=== PATIENT | male | born 1980 | race Caucasian/White ===

== ENCOUNTER 2016-06-08 09:50 | Observation (INO) | payer OTHER ==
[2016-06-08] VITALS (7 sets, daily range): BP systolic 114–149; BP diastolic 55–102; PULSE 79–91; RESP 16–20; O2SAT 94–97
[~2016-06-08] VITALS: Ht 167.6 cm; Wt 121.7 kg
[~2016-06-08 09:50] MED LIST: LEVO750T39 PO; LISI40TA PO; MELO-253 PO; METO25TA6 PO; OXYC1TAB24 PO
--- NOTE | 2016-06-08 10:20 | ED.REPORT ---
HPI-Chest Pain 40 and Over Date of Service Jun 08, 2016 ED Provider: Dr. Mcmahon Pt is a 36 y/o male w/ a hx of HTN, hyperlipidemia, pre-diabetes, presenting to the ED c/o constant CP onset 08:00 this morning. He was sitting at rest and developed sharp, tight pain of the upper left chest radiating to the left shoulder causing numbness of the left hand. He c/o associated SOB. Pt denies fever, chills, abdominal pain, increased pedal edema. Movement of his chest or arm does not increase pain. He was admitted August of last year for chest pain at which time a stress test was performed and was negative for ischemia but did show an EF of 36% on exertion. He does not take ASA regularly. He has no history of PE or any risk factors for PE. Nursing Notes Stated Complaint: SOB/CHEST PAIN Chief Complaint: Chest Pain Nursing Notes Reviewed: Yes Allergies: Coded Allergies: Sulfa (Sulfonamide Antibiotics) (Verified Allergy, Intermediate, Hives, ) azithromycin (Verified Allergy, Intermediate, allergy to erythromycin, ) erythromycin base (Verified Allergy, Intermediate, Hives, 06/08/16) Scheduled Budesonide/Formoterol 160-4.5 mcg Inh (Symbicort 160-4.5 mcg Inh) 120 Puff Inhaler 1 PUFF INH BID Lisinopril (Lisinopril) 40 Mg Tablet 40 MG PO DAILY Losartan Potassium (Losartan Potassium) 50 Mg Tablet 50 MG PO DAILY Metoprolol Tartrate (Metoprolol Tartrate) 25 Mg Tablet 25 MG PO BID Omeprazole (Omeprazole) 40 Mg Capsule.dr 40 MG PO DAILY Scheduled PRN Albuterol Sulfate (Ventolin HFA Inhaler) 200 Puff/18 Gm Inhaler 1-2 PUFFS INH Q4H PRN PRN For Shortness of Breath Fluticasone Propionate (Fluticasone Propionate Nasal) 16 Gm [place].susp 1 SPRAY NA DAILY PRN PRN For Congestion General Time Seen by MD: 10:20 Chief Complaint Chest pain Hx Obtained From: Patient Arrived By: Walk-in Sudden in Onset?: Yes Onset Occurred: 1 - 4 hours ago Context of Onset: At rest Symptom Duration: Since onset Location: : Chest left Quality: Painful, Sharp Radiation: : Arm left: Neck Severity: Current: Moderate Severity: Maximum: Moderate Recent Healthcare: Previous diagnosis Similar Sx Previous: Yes Past Medical History Past Medical History Achilles tear Scoliosis Hyperlipidemia - no meds because no RX Hypertension Pre-diabetes Past Surgical History Right shoulder Family History Grandfather myocardial infarction 40's Smoking History Never Smoker Social History Alcohol Use: "Social" Drug Use: Denies drug use Other Social History: Ambulatory Status Independent Review of Systems Constitutional: Denies: Chills, Fever Respiratory: Reports: Shortness of breath, Denies: Non-productive cough Cardiovascular: Reports: Chest pain, Denies: Edema GI: Denies: Abdominal pain, Diarrhea, Nausea, Vomiting Complete sys rev & neg: except as marked. Physical Exam Initial Vital Signs Vital Signs (First) Date Time Temp Pulse Resp B/P Pulse Ox O2 Delivery O2 Flow Rate FiO2 06/08/16 09:56 36.5 83 16 149/102 95 Room Air Initial VS: Reviewed, Vital signs normal Head / Eyes: Atraumatic, Normocephalic, PERRL ENT: Mucous membranes moist, Conjunctiva normal, No scleral icterus Neck: Supple, Full range of motion Extremities: Vascular intact, Neuro intact, No swelling, No tenderness Skin: Warm, Dry, No cyanosis Neurologic: Alert, Oriented, Nonfocal Psychiatric: Mood/affect normal, Behavior normal, Normal thought content General/Constitutional: Awake, Alert, No acute distress, Cooperative, Not toxic appearing Appearance / Presentation: Positive: Obese Respiratory / Chest: Atraumatic, Breath sounds NL, Breath sounds = bilat, No respiratory distress, No rales, No rhonchi, No wheezing, No retractions, No stridor, No chest tenderness, No chest wall deformity, No crepitus Cardiovascular: Heart rate NL, Regular rhythm, Heart sounds NL, No gallop, No murmurs, No rubs, Cap refill not delayed, Peripheral circulation NL Abdomen: Atraumatic, Soft, Non-tender, No guarding, No rebound, No distention, No palpable mass Interpretation & Diagnostics Lab Results Interpretation Result Diagram: 06/08/16 1046 06/08/16 1046 Test 06/08/16 10:46 White Blood Count 6.1th/mm3 (3.8-10.1) Red Blood Count 5.78mil/mm3 (4.40-5.80) Hemoglobin 16.3g/dL (13.8-17.2) Hematocrit 46.9% (41.0-50.0) Mean Corpuscular Volume 81.1fL (81-100) Mean Corpuscular Hemoglobin 28.2pg (27.0-35.0) Mean Corpuscular Hemoglobin Concent 34.8% (32.0-37.0) Red Cell Distribution Width 13.6% (12.3-15.4) Platelet Count 285bil/L (150-400) Neutrophils (%) (Auto) 45.3% (40-74) Lymphocytes (%) (Auto) 40.1% (14-46) Monocytes (%) (Auto) 11.2% (4-12) Eosinophils (%) (Auto) 1.7% (0-5) Basophils (%) (Auto) 1.0% (0-3) D-Dimer < 0.5mg/L (<0.50) Sodium Level 138mEq/L (134-144) Potassium Level 4.3mEq/L (3.5-5.2) Chloride Level 101mEq/L (97-108) Carbon Dioxide Level 25mmol/L (18-29) Blood Urea Nitrogen 16mg/dL (6-20) Creatinine 1.08mg/dL (0.76-1.27) Estimat Glomerular Filtration Rate 83mL/min (>59) Glucose Level 93mg/dL (60-99) Calcium Level 9.2mg/dL (8.5-10.1) Magnesium Level 2.3mg/dL (1.6-2.6) Total Bilirubin 0.5mg/dL (0.0-1.2) Aspartate Amino Transf (AST/SGOT) 34U/L (0-50) Alanine Aminotransferase (ALT/SGPT) 53U/L (0-44) Alkaline Phosphatase 59U/L (25-150) Total Creatine Kinase 342U/L (21-232) Creatine Kinase MB 3.5ng/mL (0.0-10.4) Creatine Kinase MB % % (0.0-5.0) Troponin T < 0.010ug/L (0.0-0.011) Total Protein 7.3g/dL (6.4-8.4) Albumin 4.4g/dL (3.4-5.0) Thyroid Stimulating Hormone (TSH) 0.946uIU/mL (0.450-4.500) ECG Interpretation ECG Interpretation: Sinus rhythm rate 89 Compared to prior 02/29/16 no longer tachycardic Time: 10:21 Interpreted by: ED physician Normal ECG Interpretation: Normal rate, Normal sinus rhythm, No acute ischemic changes, Normal QRS, Normal axis, Normal intervals, No change from prior ECGs, Adequate tracing X-Ray Chest Interpretation Chest Xray Interpretation: IMPRESSION: No acute cardiopulmonary disease process. Dictated by: Yasmeen Waller MD, PhD on 06/08/2016 at 10:45 Approved by: Yasmeen Waller MD, PhD on 06/08/2016 at 10:46 View: Portable, 1 view Interpretation / Wet Read by: Interpret - Radiologist Re-Eval/Medical Decision Med Decision/Clinical Course Pt is a 36 y/o male w/ a hx of HTN, hyperlipidemia, pre-diabetes, presenting to the ED c/o constant CP onset 08:00 this morning. He was sitting at rest and developed sharp, tight pain of the upper left chest radiating to the left shoulder causing numbness of the left hand. He c/o associated SOB. Pt denies fever, chills, abdominal pain, increased pedal edema. Movement of his chest or arm does not increase pain. He was admitted August of last year for chest pain at which time a stress test was performed and was negative for ischemia but did show an EF of 36% on exertion. He does not take ASA regularly. He has no history of PE or any risk factors for PE. Meds given: morphine, ASA, and nitro. He reported that his pain was only minimally improved. CXR: Obtained, reviewed and interpreted by myself shows no evidence of acute infiltrates, effusions or pneumothorax. Cardiac and mediastinal silhouette normal. No bony or soft tissue abnormalities. EKG was obtained and interpreted by myself as documented above. Labs notable as below: CBC: unremarkable CMP: unremarkable Troponin: negative At this time, the cause of the patient's chest pain remains unclear. I am reassured by his recent negative cardiac workup in terms of ischemic process however after reading his discharge summary I see no good explanation for why the patient has such a decreased ejection fraction at the age of 36. Moreover he has multiple cardiac risk factors including hypertension, hyperlipidemia, prediabetes and truncal obesity. I see no signs of the patient's presentation today is related to GERD or musculoskeletal etiology. Suspicion for pulmonary embolism is relatively low in this patient. On further discussion he does report strong family history of coronary artery disease. He discussions with the patient the joint decision was made to admit for further cardiac workup/ACS rule out. He was transferred in stable condition. Time of Eval: 12:43 Re-Evaluation/Progress Note: Pt rechecked. Informed pt of need for admission. Pt understands and agrees with plan for admission. All questions addressed. Consultation : Consulted With: Hospitalist Call Returned at: 14:37 Mems Process Engineer: Will see patient, Agrees with eval, Agrees with plan, Accepts admit Counseled Regarding: Diagnosis, Lab results, Need for admission Discharge & Departure Primary Impression: Chest pain Chest pain type: unspecified Qualified Code: R07.9 - Chest pain, unspecified Additional Impressions: Hyperlipidemia Hyperlipidemia type: unspecified Qualified Code: E78.5 - Hyperlipidemia, unspecified Hypertension Hypertension type: unspecified secondary hypertension Hypertension goal: unspecified goal Qualified Code: I15.9 - Secondary hypertension, unspecified Cardiac LV ejection fraction 21-40% Prediabetes Disposition: ADMITTED TO HOSPITAL Discharge Condition All VS Reviewed: Yes Condition: Stable Referrals: Marie Lacy (PCP) Pierreibrahul Attestation Portions of this note were transcribed by Nabor Calhoun. I, Dr. Mcmahon personally performed the history, physical exam and medical decision-making; I reviewed and confirmed the accuracy of the information in the transcribed note. Signed by Christy Griggs, 06/08/16 - 1200 copies to: Marie Lacy Beck O MD Jun 08, 2016 10:20 NABOR CALHOUN Jun 08, 2016 10:21
--- NOTE | 2016-06-08 10:48 | DRSVH ---
PROCEDURE: X-RAY CHEST ONE VIEW, PORTABLE ([id number]) INDICATIONS: PAIN TECHNIQUE: One view of the chest was acquired. COMPARISON: [facility], CR, XR CHEST 2VW, 05/29/2016, 14:41. [facility], CR , XR CHEST 1VW (PORTABLE), 02/29/2016, 16:50. FINDINGS: Surgical changes and devices: None. Lungs and pleura: No pleural effusions or pneumothorax. Lungs are clear. Mediastinum: Mediastinal contours appear normal. Heart size is normal. Bones and chest wall: Chronic skeletal deformity of the upper right chest wall stable compared to larisa or examinations. No suspicious bony lesions. Overlying soft tissues appear unremarkable. IMPRESSION: No acute cardiopulmonary disease process. Dictated by: Yasmeen Waller MD, PhD on 06/08/2016 at 10:45 Approved by: Yasmeen Waller MD, PhD on 06/08/2016 at 10:46
[2016-06-08 11:04] LABS: EOSINOPHILS % (AUTO) 1.7 % (0-5); MONOCYTES % (AUTO) 11.2 % (4-12); Mean Corpuscular Hemoglobin 28.2 pg (27.0-35.0); Mean Corpuscular Volume 81.1 fL (81-100); NEUTROPHILS % (AUTO) 45.3 % (40-74); Platelet Count 285 bil/L (150-400)
[2016-06-08 11:43] LABS: Magnesium 2.3 mg/dL (1.6-2.6)
[2016-06-08 11:48] LABS: TROPONIN T < 0.010 ug/L (0.0-0.011)
[2016-06-08] MEDS ORDERED: ALBU18HF INH (13:41)
[2016-06-08] MEDS ORDERED: OMEP40CA36 PO (13:43)
[2016-06-08] MEDS ORDERED: FLUT16SP (13:43)
[2016-06-08] MEDS ORDERED: LOSA50TA37 PO (13:43)
[2016-06-08] MEDS ORDERED: SYMINH INH (13:43)
--- NOTE | 2016-06-08 14:04 | NUR ---
Admit nurse note Admission assessment completed in ER. Pt. states his pain has not improved with 1st dose of morphine or nitroglycerin. Second dose of nitroglycerin given per orders. Pt. 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 c/o 09/25 sharp, throbbing cp with tingling down his left arm. He reports a large amount of stress lately. Apparently he has had multiple bouts of bronchitis and pneumonia, a chronic cough and recent dx of sleep apnea, in process of getting CPAP. He was admitted to [facility] for undiagnosed blackouts "they think it might be my spine." Also, hx EF 36% of unknown cause. Medicines entered per pt. report and erx but pt. was recently dx 4 medications to improve his cough, which he has not yet started. Allergies verified and allergy sticker placed. Report to be given to primary RN when a unit room number is assigned.
[2016-06-08] MEDS ORDERED: Ondansetron 2 mg/mL 2 mL Inj IVPUSH PRN ×2 (16:05→16:50)
[2016-06-08] MEDS ORDERED: Alum-Mag Hydrox-Simeth 30 mL Suspension PO PRN ×2 (16:05→16:50)
[2016-06-08] MEDS ORDERED: Polyethylene Glycol (PEG) 17 Gm Powder PO PRN (16:50)
[2016-06-08] MEDS ORDERED: Fluticasone 0.05% 15 Spray/2 Gm 16 Gm Nasal Spray NASAL PRN (16:50)
[2016-06-08] MEDS ORDERED: Albuterol 1.25 mg/3 mL Inhalation Solution NEB PRN (16:50)
[2016-06-08] MEDS ORDERED: Senna-Docusate 8.6-50 mg Tablet PO PRN (16:50)
--- NOTE | 2016-06-08 17:02 | PCM.HPMED ---
Subjective Date of Service Jun 08, 2016 Primary Provider: Admitting Physician: Vincent Gray MD Primary Care Physician: Marie Lacy Attending Physician: Vincent Gray MD Chief Complaint: Chest pain History of Present Illness: Pt is a 36 y/o male w/ a hx of morbid obesity, obstructive sleep apnea, HTN, hyperlipidemia, pre-diabetes, presenting to the ED c/o constant CP . Chest pain is retro sternal 8 out of 10 intensity, radiated to his left arm and associated with arm numbness. Patient said he was short of breath and diaphoretic at some point. Pt denies fever, chills, abdominal pain, increased pedal edema. He denied any alleviating or aggravating factors of his chest pain. Patient stated he has been having chest pain intermittent chest pain over the past 4 week at least but this time to chest pain was most severe reason for which he decided to come to the emergency room. He was admitted August of last year for chest pain at which time a stress test was performed and was negative for ischemia but did show an EF of 36% on exertion. He underwent emergency room his chest that improved with nitroglycerin. Given this gentleman's multiple risk factor for coronary artery disease, he is being put to observation to rule out ACS. Review of Systems: Review of systems is pertinent for chest pain as described above in HPI, otherwise a comprehensive review x 12 points is negative Allergies Coded Allergies: Sulfa (Sulfonamide Antibiotics) (Verified Allergy, Intermediate, Hives, ) azithromycin (Verified Allergy, Intermediate, allergy to erythromycin, ) erythromycin base (Verified Allergy, Intermediate, Hives, 06/08/16) Home Medications Budesonide/Formoterol 160-4.5 mcg Inh (Symbicort 160-4.5 mcg Inh) 120 Puff Inhaler 1 PUFF INH BID Lisinopril (Lisinopril) 40 Mg Tablet 40 MG PO DAILY Losartan Potassium (Losartan Potassium) 50 Mg Tablet 50 MG PO DAILY Metoprolol Tartrate (Metoprolol Tartrate) 25 Mg Tablet 25 MG PO BID Omeprazole (Omeprazole) 40 Mg Capsule.dr 40 MG PO DAILY Scheduled PRN Albuterol Sulfate (Ventolin HFA Inhaler) 200 Puff/18 Gm Inhaler 1-2 PUFFS INH Q4H PRN PRN For Shortness of Breath Fluticasone Propionate (Fluticasone Propionate Nasal) 16 Gm [place].susp 1 SPRAY NA DAILY PRN PRN For Congestion PMH Achilles tear Scoliosis Hyperlipidemia Hypertension Pre-diabetes STEF Morbid Obesity Surgical History Past Surgical History Right shoulder Family History His grandfather had a myocardial infarction in his early 50 Social History Hx Alcohol Use: No Hx Substance Use: No Hx Tobacco Use: No Smoking Status: Never Smoker Living Arrangement: with Family (Irasemante lives with his ) Exam Vital Signs Vital Sign - Last Date Time Temp Pulse Resp B/P Pulse Ox O2 Delivery O2 Flow Rate FiO2 06/08/16 16:23 82 20 128/87 96 Room Air 06/08/16 16:21 36.3 Exam General/Constitutional: Morbidly obese male , and stretcher comfortably, no acute distress HEENT: Normocephalic, atraumatic, sclera anicteric Mouth: Moist oropharyngeal mucosa, no oral thrush. Neck: Atraumatic, Supple, no JVD , trachea is midline No swelling, Non-tender, No carotid bruit Heart: S1, S2, Regular rhythm, No murmurs, No rubs, no gallop Chest:Atraumatic, no chest wall deformity, no tenderness Abdomen / GI: Obese , Soft, Non-tender, non distended, no palpable masses. Bowel sounds normal Lymphatic: No lymphadenopathy, no splenomegaly Extremities: No cyanosis, no edema, no calf tenderness Skin: Warm, Dry, No cyanosis, no rash, and also Psychiatric: Mood/affect normal, Behavior normal, Normal thought content Neurologic: Oriented X3, grossly non focal Lab and Diagnostics Result Diagram: 06/08/16 1046 06/08/16 1046 X-Rays, CTs and MRIs Chest x-ray reviewed and showed no evidence of acute cardiopulmonary disease process. 12-lead EKG reviewed and showed no ST elevation or depression Assessment & Plan 1. Chest pain rule out ACS 2. History of systolic heart failure 3. Newly diagnosed obstructive sleep apnea 4. Morbid obesity 5. Hypertension 6. Hypercholesterolemia 7. Pre- diabetes This is a 36 years old obese male with multiple risk factor for coronary artery disease including: Hypertension, obesity, pre-diabetes, hypercholesterolemia and family history of premature coronary artery disease. He presented to the hospital with typical chest pain. Initial workup negative but patient is high risk for ACS. Continue troponin trend. Telemetry monitoring. 12-lead EKG for chest pain or worsening chest pain. Nitroglycerin patch for chest pain. Aspirin 81 mg orally daily. Continue metoprolol 25 mg twice a day. Obtain lipid profile, hemoglobin A1c, TSH. BNP As the medical record patient had an echocardiogram showing an ejection fraction. Repeat echocardiogram. Continue lisinopril. Patient has no clinical stigmata of heart failure at this time. If troponin is negative , will do a stress test in the morning. Ultimately , this patient may need a cardiac catheterization to get to the bottom of his current chest pain. Counseling provided regarding weight loss, diet and need to follow-up for sleep apnea and have a BiPAP machine Heparin for DVT prophylaxis. Pain Evaluation: Adequate Pain Control VTE Prophylaxis: Sub-Q Heparin (Unfractionated) Resuscitation Status: CPR: Attempt Resuscitation Time spent 55 minutes Vincent Gray MD Jun 08, 2016 17:02
[2016-06-08 17:14] LABS: Creatine Kinase 342 U/L (21-232)
[2016-06-08] MEDS: Heparin 5,000 Unit/mL Inj SUBQ SCH (18:22)
--- NOTE | 2016-06-08 18:42 | NUR ---
Arrival to 1006 Pt arrival to room 1006 at 1630. Pt continues to c/o chest pain but refuses Nitro or Morphine as doses in ER were ineffective. He rates his pain 7/10 and describes shooting pain down L arm with tingling and numbness in his hand. Extensive report taken from admit nurse which was verified with the patient at bedside. Orders received for stress test and echo in the morning, teaching done and explained no caffeine and NPO at 0400. Pt on tele and cpox.
[2016-06-08 23:21] LABS: Creatine Kinase 244 U/L (21-232)
[2016-06-09 01:03] VITALS: BP 123/85; PULSE 76; RESP 16; O2SAT 98
[2016-06-09] MEDS: Heparin 5,000 Unit/mL Inj SUBQ SCH ×3 (01:17→16:21)
--- NOTE | 2016-06-09 04:48 | NUR ---
Pain/ Pt. education Pt. rates pain 09/25. IV morphine given twice during this shift, with pt. falling back asleep after dose is given. Given pt. education on need for NPO for stress test. Pt. voiced understanding.
[2016-06-09 05:12] VITALS: BP 127/87; PULSE 75; RESP 16; O2SAT 95
[2016-06-09 05:22] LABS: TROPONIN T 0.01 ug/L (0.0-0.011)
[2016-06-09 07:18] LABS: BASOPHILS % (AUTO) 0.7 % (0-3); MONOCYTES % (AUTO) 10.6 % (4-12); Mean Corpuscular Hemoglobin 28.3 pg (27.0-35.0); NEUTROPHILS % (AUTO) 46.8 % (40-74); Platelet Count 244 bil/L (150-400)
[2016-06-09 08:00] VITALS: PULSE 72
--- NOTE | 2016-06-09 10:32 | NUR ---
Social Work- Brief Note Data: EMR reviewed. Pt is a 36 year old male admitted 06/08/16 for chest pain. Pt's insurance is [employer]. Pt's PCP is Marie Lacy PA-C. Pt resides in [place] with his where he remains independent with ADLs. 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 Pt to receive stress test. Pt anticipated to discharge home with to transport via POV. No anticipated discharge needs. SW will continue to follow. Assessment: [place]. Plan: Pt anticipate to discharge home with to transport via POV. No anticipated discharge needs. SW will continue to follow. JANEL Mclaughlin Addendum: 06/09/16 at 1307 by RHODA LYN SS Social Work- Continued D/C Planning VANCE spoke with RN who states that pt has concerns related to hospitalization, his cardiac workup, etc. Pt frustrated and emotional about admission. Pt inquiring about transfer to another hospital for a second opinion, VANCE explained typical process for transfer. VANCE provided emotional support and validation to pt and . MD notified of pt's concerns. SW will continue to follow. JANEL Mclaughlin
--- NOTE | 2016-06-09 13:16 | PCM.PNMED ---
Subjective Date of Service Jun 09, 2016 Subjective Patient seen at bedside, complains of left-sided chest pain with radiation to neck, feeling like his tight. Also complains of left arm numbness which has been worse over the last couple days. No speech changes no shortness of breath but noticed some increasing shortness of breath with exertional activities over last few months. Last echo with low EF noted - plan for cervical MRI and awaiting stress test results Exam Vital Signs Vital Sign - Last Date Time Temp Pulse Resp B/P Pulse Ox O2 Delivery O2 Flow Rate FiO2 06/09/16 08:00 72 06/09/16 05:12 36.3 16 127/87 95 Room Air 06/09/16 01:03 2.00 Intake and Output 06/08/16 06/08/16 06/09/16 Cumulative From/Thru 15:00 23:00 07:00 06/08/16 09:56 - 06/09/16 06:01 Intake Total 400 ml 400 ml 800 ml Output Total 0 ml 625 ml 625 ml Balance 400 ml -225 ml 175 ml Intake Oral 400 ml 400 ml 800 ml Output Urine Total 0 ml 625 ml 625 ml # Bowel Movements 0 0 0 Exam General/Constitutional: Morbidly obese male , and stretcher comfortably, no acute distress HEENT: Normocephalic, atraumatic, sclera anicteric Mouth: Moist oropharyngeal mucosa, no oral thrush. Neck: Atraumatic, Supple, no JVD , trachea is midline No swelling, Non-tender, No carotid bruit Heart: S1, S2, Regular rhythm, No murmurs, No rubs, no gallop Chest:Atraumatic, no chest wall deformity, no tenderness Abdomen / GI: Obese , Soft, Non-tender, non distended, no palpable masses. Bowel sounds normal Lymphatic: No lymphadenopathy, no splenomegaly Extremities: No cyanosis, no edema, no calf tenderness, neg adsons Skin: Warm, Dry, No cyanosis, no rash, and also Psychiatric: Mood/affect normal, Behavior normal, Normal thought content Neurologic: Oriented X3, 4/5 UE extension on L, decr sensation ot L hand IVs and Medications Medications Reviewed: Medications were reviewed in detail Lab and Diagnostics Result Diagram: 06/09/16 0706/09/16 0420 X-Rays, CTs and MRIs Chest x-ray reviewed and showed no evidence of acute cardiopulmonary disease process. 12-lead EKG reviewed and showed no ST elevation or depression 2013 MRI cervical spine Spinal cord: Visualized spinal cord has normal size and signal. No cerebellar tonsillar herniation. No abnormal intramedullary enhancement. Paraspinous soft tissues: No paravertebral masses or suspicious enhancement. C2-3: There is coalition at this level. There is increased, moderate left and no change in mild right foraminal stenosis. No canal stenosis. C3-4: Correlation. Bilateral facet and uncovertebral hypertrophy. No change in mild left foraminal stenosis. No right foraminal stenosis. No canal stenosis. No change. C4-5: Disc desiccation and diffuse disc bulge. Moderate canal stenosis. Mild left and severe right foraminal stenosis. No change. C5-6: Coalition. Mild left and no right frontal stenosis. Mild canal stenosis. No change. C6-7: Normal appearance. C7-T1: Disc desiccation and mild diffuse disc bulge. Mild bilateral foraminal stenosis. Mild canal stenosis. No change. IMPRESSION: 1. 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 2. Multilevel canal and foraminal stenoses as described above, which have increased at C2-C3. Otherwise, no significant change. Assessment & Plan 1. Chest pain rule out ACS 2. History of systolic heart failure, repeat echo 3. Newly diagnosed obstructive sleep apnea 4. Morbid obesity 5. Hypertension 6. Hypercholesterolemia 7. Pre- diabetes 8. Chronic cough, switched lisinopril to losartan This is a 36 years old obese male with multiple risk factor for coronary artery disease including: Hypertension, obesity, pre-diabetes, hypercholesterolemia and family history of premature coronary artery disease. He presented to the hospital with typical chest pain. Initial workup negative but patient is high risk for ACS. Awaiting stress test results If stress is negative, will continue with MRI cervical spine as left abduction symptoms of numbness and mild weakness may be secondary to his cervical stenosis etiology which patient has a history of Continue troponin trend. Telemetry monitoring. 12-lead EKG for chest pain or worsening chest pain. Nitroglycerin patch for chest pain. Aspirin 81 mg orally daily. Continue metoprolol 25 mg twice a day. A1c is 6.1 As the medical record patient had an echocardiogram showing an ejection fraction. Repeat echocardiogram,. Switch lisinopril to losartan given chronic cough Patient has no clinical stigmata of heart failure at this time. Ultimately , this patient may need a cardiac catheterization to get to the bottom of his current chest pain - will consider after results of above tests Counseling provided regarding weight loss, diet and need to follow-up for sleep apnea and have a BiPAP machine Heparin for DVT prophylaxis. Pain Evaluation: Adequate Pain Control GI Prophylaxis: Not indicated VTE Prophylaxis: Sub-Q Heparin (Unfractionated) VTE Mechanical Devices: Intermittant Pneumatic CD Resuscitation Status: CPR: Attempt Resuscitation Time spent 40 minutes spent with evaluation and management Attending Statement Disposition: Likely discharge tomorrow pending results of current studies and MRI cervical neck Vincent Hendrickson DO Jun 09, 2016 13:16
[2016-06-09 13:18] VITALS: BP 135/84; PULSE 84; RESP 18; O2SAT 95
--- NOTE | 2016-06-09 15:50 | DRSVH ---
PROCEDURE: 1 DAY TREADMILL STRESS TEST Rest and exercise myocardial perfusion SPECT with gated imaging and ejection fraction RADIOPHARMACEUTICAL: 16.5 mCi Tc-99m tetrafosmin IV at rest and 26.2 mCi Tc-99m tetrafosmin IV at pea k exercise. [id number] was performed. INDICATIONS: 36 year-old man with chest pain. The patient has hypertension and hyperlipidemia. TECHNIQUE: Radiopharmaceutical was injected at peak stress test, and also at rest. SPECT images wer e obtained. SPECT myocardial perfusion images were displayed in short axis, horizontal long axis, an d vertical long axis views. Gated images were reviewed using [employer] software. COMPARISON: [facility], [place], [place] CARDIAC STRESS TEST PHARM, 09/08/2015, 11:32. CARDIAC STRESS: A standard Oswaldo treadmill exercise tolerance test was performed by the patient under the supervision of an attending staff. The patient exercised for 8 minutes and 8 seconds; functional aerobic impair ment (ANNA) is +37 %. Hemodynamic data: There is normal blood pressure and heart rate response to exercise stress. Patien t achieved 86% of maximum predicted heart rate at peak exercise. Symptoms: Patient denied chest pain at baseline, unchanged during exercise. EKG: No diagnostic EKG changes of ischemia; no ectopy. FINDINGS: Raw data: There is good myocardial labeling by radiotracer. No significant motion artifacts. Left ventricle function: Gated images demonstrate normal left ventricle wall thickening. No segment al wall motion abnormality. No transient ischemic dilation. The left ventricle resting end-diastoli c volume is normal. Left ventricle stress ejection fraction is 70%; normal values are above 45%. Myocardial perfusion: There is normal distribution of activity in the left and right ventricular gertrude cardium. No fixed or reversible perfusion defects. Comparison to prior examinations: Compared to the last examination on 09/08/2015, there is no signific ant change. IMPRESSION: 1. Normal myocardial perfusion images. 2. Normal left ventricular volume and systolic function. 3. Reduced exercise capacity. Sharp chest pain at baseline, which is unchanged cholecystitis. No diag nostic EKG changes for ischemia. PQRS ATTESTATIONS: Measure 322 - Is this imaging test primarily performed on a low-risk surgery patient for preoperative evaluation within 30 days preceding their low-risk non-cardiac surgery? Low-risk surgery is defined as cardiac or myocardial infarction less than 1%, including (but not limited to) endoscopic pr ocedures, superficial procedures, cataract surgery, and excisional breast surgery: Answer: No Measure 323 - Is this imaging test performed primarily for the monitoring of an asymptomatic patient who had percutaneous coronary intervention on the visit date or within 2 years of the visit date? An swer: No Measure 324 - Is this imaging test performed primarily for the initial detection and risk assessment on an asymptomatic, low coronary heart disease patient? Low CHD risk definition = clinicians should consider the maximum number of available patient factors used to estimate risk based on Camargo (A TP III criteria), typically age, gender, diabetes, smoking status, and use of blood pressure medicati on, and integrate age appropriate estimates for missing elements, such as LDL or standard blood press ure. Answer: No Dictated by: Monica Cortés M.D. on 06/09/2016 at 15:44 Approved by: Monica Cortés M.D. on 06/09/2016 at 15:48
[2016-06-09 16:26] VITALS: BP 133/85; PULSE 81; RESP 22; O2SAT 95
[2016-06-09] MEDS: 0.9% Sodium Chloride 1,000 ML IV SCH (17:00)
--- NOTE | 2016-06-09 17:55 | DRSVH ---
PROCEDURE: CT ANGIO CHEST PULMONARY EMBOLISM ([id number]) INDICATIONS: chest pain TECHNIQUE: After the administration of intravenous contrast, 2 mm thick sections acquired from the pulmonary api nadja to the posterior costophrenic angles. 3-dimensional maximum intensity projection (MIP) coronal a nd sagittal reformats were then acquired through the thorax. For radiation dose reduction, the follo wing was used: automated exposure control, adjustment of mA and/or kV according to patient size. COMPARISON: [facility], CT, CHEST WITH CONTRAST, 07/28/2014, 13:15. FINDINGS: Image quality: Excellent. Pulmonary arteries: Pulmonary arteries are normal in size, and demonstrate no intraluminal filling d efects to suggest central pulmonary embolism. Lungs and pleura: Mild bibasilar atelectasis versus pneumonia is present. No pleural effusions or pne umothorax. Central and peripheral airways are patent. Mediastinum: Prominent mediastinal fat. Heart size is normal, without pericardial effusion. No media stinal or hilar adenopathy. Thoracic aorta is normal in caliber and enhancement. Esophagus is abel l in caliber, without hiatal hernia. Bones and chest wall: No suspicious bony lesions. Moderate rightward curvature of the upper thoraci c spine, with hemivertebrae are present, as before. Ribs and thoracic spine appear intact throughout. Thyroid gland is within normal limits. No axillary or supraclavicular adenopathy. Abdomen: Visualized upper abdominal solid organs appear normal in the early arterial phase of enhanc ement. IMPRESSION: 1. No acute process. No pulmonary embolus. 2. Mediastinal lipomatosis. 3. 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 Dictated by: Kaden Gamino M.D. on 06/09/2016 at 17:50 Approved by: Kaden Gamino M.D. on 06/09/2016 at 17:53
[2016-06-09 20:56] VITALS: BP 121/76; PULSE 67; RESP 22; O2SAT 95
[2016-06-10] MEDS: Heparin 5,000 Unit/mL Inj SUBQ SCH ×2 (00:42→09:02)
[2016-06-10 00:56] VITALS: BP 99/66; PULSE 62; RESP 20; O2SAT 96
[2016-06-10] MEDS: 0.9% Sodium Chloride 1,000 ML IV SCH (02:48)
--- NOTE | 2016-06-10 03:54 | NUR ---
Pt. education on plan Pt. was educated on what has been done so far, and the echo test upcoming. Pt. verbalized understanding.
[2016-06-10 05:02] VITALS: BP 113/75; PULSE 70; RESP 20; O2SAT 94
[2016-06-10 05:07] LABS: BASOPHILS % (AUTO) 0.9 % (0-3); EOSINOPHILS % (AUTO) 2.4 % (0-5); MONOCYTES % (AUTO) 11.1 % (4-12); Mean Corpuscular Hemoglobin 28.7 pg (27.0-35.0); Mean Corpuscular Volume 82.2 fL (81-100); NEUTROPHILS % (AUTO) 38.8 % (40-74); Platelet Count 265 bil/L (150-400)
[2016-06-10 06:03] VITALS: PULSE 74
--- NOTE | 2016-06-10 07:27 | PCM.DC.MED ---
Discharge Summary Date of Service Jun 10, 2016 Dates of Hospitalization Date of Hospital Admission Jun 08, 2016 at 14:42 Date of Discharge: Jun 10, 2016 Providers: Admitting Physician: Vincent Gray MD Primary Care Physician: Marie Lacy Attending Physician: Vincent Gray MD Diagnosis at Time of Discharge Diagnosis at Time of Discharge 1. Chest pain ruled out ACS/PE/AD - likely etiology from cervical stenosis possble radiculopathy 2. History of systolic heart failure, 3. Newly diagnosed obstructive sleep apnea 4. Morbid obesity 5. Hypertension 6. Hypercholesterolemia 7. Pre- diabetes 8. Chronic cough, possibly bradykinin - switched lisinopril to losartan Consultations none Procedures ECG 12 Lead Chest x-ray reviewed and showed no evidence of acute cardiopulmonary disease process. 12-lead EKG reviewed and showed no ST elevation or depression 2012 MRI cervical spine Spinal cord: Visualized spinal cord has normal size and signal. No cerebellar tonsillar herniation. No abnormal intramedullary enhancement. Paraspinous soft tissues: No paravertebral masses or suspicious enhancement. C2-3: There is coalition at this level. There is increased, moderate left and no change in mild right foraminal stenosis. No canal stenosis. C3-4: Correlation. Bilateral facet and uncovertebral hypertrophy. No change in mild left foraminal stenosis. No right foraminal stenosis. No canal stenosis. No change. C4-5: Disc desiccation and diffuse disc bulge. Moderate canal stenosis. Mild left and severe right foraminal stenosis. No change. C5-6: Coalition. Mild left and no right frontal stenosis. Mild canal stenosis. No change. C6-7: Normal appearance. C7-T1: Disc desiccation and mild diffuse disc bulge. Mild bilateral foraminal stenosis. Mild canal stenosis. No change. IMPRESSION: 1. 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 2. Multilevel canal and foraminal stenoses as described above, which have increased at C2-C3. Otherwise, no significant change. Other Diagnostics nuclear stress FINDINGS: Raw data: There is good myocardial labeling by radiotracer. No significant motion artifacts. Left ventricle function: Gated images demonstrate normal left ventricle wall thickening. No segmental wall motion abnormality. No transient ischemic dilation. The left ventricle resting end-diastolic volume is normal. Left ventricle stress ejection fraction is 70%; normal values are above 45%. Myocardial perfusion: There is normal distribution of activity in the left and right ventricular myocardium. No fixed or reversible perfusion defects. Comparison to prior examinations: Compared to the last examination on 09/08/2015 , there is no significant change. IMPRESSION: 1. Normal myocardial perfusion images. 2. Normal left ventricular volume and systolic function. 3. Reduced exercise capacity. Sharp chest pain at baseline, which is unchanged cholecystitis. No diagnostic EKG changes for ischemia. Switched lisinopril to losartan to see if chronic cough is improved, PCP follow- up recommended Test Results CT chest PROCEDURE: CT ANGIO CHEST PULMONARY EMBOLISM ([id number]) INDICATIONS: chest pain TECHNIQUE: After the administration of intravenous contrast, 2 mm thick sections acquired from the pulmonary apices to the posterior costophrenic angles. 3-dimensional maximum intensity projection (MIP) coronal and sagittal reformats were then acquired through the thorax. For radiation dose reduction, the following was used: automated exposure control, adjustment of mA and/or kV according to patient size. COMPARISON: [facility], CT, CHEST WITH CONTRAST, 07/28/2014, 13:15. FINDINGS: Image quality: Excellent. Pulmonary arteries: Pulmonary arteries are normal in size, and demonstrate no intraluminal filling defects to suggest central pulmonary embolism. Lungs and pleura: Mild bibasilar atelectasis versus pneumonia is present. No pleural effusions or pneumothorax. Central and peripheral airways are patent. Mediastinum: Prominent mediastinal fat. Heart size is normal, without pericardial effusion. No mediastinal or hilar adenopathy. Thoracic aorta is normal in caliber and enhancement. Esophagus is normal in caliber, without hiatal hernia. Bones and chest wall: No suspicious bony lesions. Moderate rightward curvature of the upper thoracic spine, with hemivertebrae are present, as before. Ribs and thoracic spine appear intact throughout. Thyroid gland is within normal limits. No axillary or supraclavicular adenopathy. Abdomen: Visualized upper abdominal solid organs appear normal in the early arterial phase of enhancement. IMPRESSION: 1. No acute process. No pulmonary embolus. 2. Mediastinal lipomatosis. 3. 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 Nuclear stress test IMPRESSION: 1. Normal myocardial perfusion images. 2. Normal left ventricular volume and systolic function. 3. Reduced exercise capacity. Sharp chest pain at baseline, which is unchanged cholecystitis. No diagnostic EKG changes for ischemia. Negative chest x-ray Brief History HPI per admitting physician: Pt is a 36 y/o male w/ a hx of morbid obesity, obstructive sleep apnea, HTN, hyperlipidemia, pre-diabetes, presenting to the ED c/o constant CP . Chest pain is retro sternal 8 out of 10 intensity, radiated to his left arm and associated with arm numbness. Patient said he was short of breath and diaphoretic at some point. Pt denies fever, chills, abdominal pain, increased pedal edema. He denied any alleviating or aggravating factors of his chest pain. Patient stated he has been having chest pain intermittent chest pain over the past 4 week at least but this time to chest pain was most severe reason for which he decided to come to the emergency room. He was admitted August of last year for chest pain at which time a stress test was performed and was negative for ischemia but did show an EF of 36% on exertion. He underwent emergency room his chest that improved with nitroglycerin. Given this gentleman's multiple risk factor for coronary artery disease, he is being put to observation to rule out ACS. Hospital Course Patient is a 36 years old obese male with multiple risk factor for coronary artery disease including: Hypertension, obesity, pre-diabetes, hypercholesterolemia and family history of premature coronary artery disease. He presented to the hospital with typical chest pain. Chest pain workup ruled out ACS/PE/aortic dissection with CTA chest/nuclear stress - EF during stress wnl - patient remained afebrile, hemodynamically stable with adequate oxygenation at the time of discharge 1. Chest pain rule out ACS/PE/aortic dissection with CTA/nuclear stress - EF wiht stress wnl, pt was monitored on tele, and neg troponin -Pt was unable to tolerate MRI cervical spine - d/t atypical L sided cp with symptoms of numbness and mild weakness which may be secondary to his cervical stenosis given congenital scoliosis, pt will have outpatient imaging once pain is improved. -I will not be prescribing opioid medications for him I educated patient on the risks of this medication and he should optimize his treatment and use as well as intermittent naproxen with food in stomach 2. History of systolic heart failure - no active cardiac/chf sx - Aspirin 81 mg orally daily. Continue metoprolol 25 mg twice a day. -PCP follow-up recommended, prescription for losartan 25 mg given Chronic Medical Conditions 3. Newly diagnosed obstructive sleep apnea - Counseling provided regarding weight loss, diet and need to follow-up for sleep apnea and have a BiPAP machine 4. Morbid obesity 5. Hypertension -Patient has to keep a blood pressure log to bring to his PCP for further blood pressure med titration, at goal now 6. Hypercholesterolemia 7. Pre- diabetes - A1c is 6.1, educated on prediabetes dx and TLC with regular PCP f/u to attend dietary classes and see a dietitian 8. Chronic cough, switched lisinopril to losartan - asked to f/u with PCP for eval of sx Exam Vital Signs (Last) Date Time Temp Pulse Resp B/P Pulse Ox O2 Delivery O2 Flow Rate FiO2 06/10/16 06:03 74 06/10/16 05:02 36.1 20 113/75 94 Room Air 06/09/16 01:03 2.00 Exam General/Constitutional: Morbidly obese male , and stretcher comfortably, no acute distress HEENT: Normocephalic, atraumatic, sclera anicteric Mouth: Moist oropharyngeal mucosa, no oral thrush. Neck: Atraumatic, Supple, no JVD , trachea is midline No swelling, Non-tender, No carotid bruit Heart: S1, S2, Regular rhythm, No murmurs, No rubs, no gallop Chest:Atraumatic, no chest wall deformity, no tenderness Abdomen / GI: Obese , Soft, Non-tender, non distended, no palpable masses. Bowel sounds normal Lymphatic: No lymphadenopathy, no splenomegaly Extremities: No cyanosis, no edema, no calf tenderness, neg adsons Skin: Warm, Dry, No cyanosis, no rash, and also Psychiatric: Mood/affect normal, Behavior normal, Normal thought content Neurologic: Oriented X3, 4/5 UE extension on L, decr sensation ot L hand Test 06/08/16 10:46 06/08/16 22:41 06/09/16 04:20 06/10/16 04:40 D-Dimer < 0.5mg/L (<0.50) Hemoglobin A1c 6.1% (4.8-5.6) Magnesium Level 2.3mg/dL (1.6-2.6) Thyroid Stimulating Hormone (TSH) 0.946uIU/mL (0.450-4.500) Total Creatine Kinase 244U/L (21-232) Creatine Kinase MB 2.8ng/mL (0.0-10.4) Creatine Kinase MB % % (0.0-5.0) Troponin T 0.010ug/L (0.0-0.011) Triglycerides Level 281mg/dL (0-149) Cholesterol Level 207mg/dL (100-199) LDL Cholesterol, Calculated 129.800mg/dL (0-99) VLDL Cholesterol 56.200mg/dL HDL Cholesterol 21mg/dL (>39) Cholesterol/HDL Ratio 9.86 (0.0-4.4) White Blood Count 5.8th/mm3 (3.8-10.1) Red Blood Count 5.44mil/mm3 (4.40-5.80) Hemoglobin 15.6g/dL (13.8-17.2) Hematocrit 44.7% (41.0-50.0) Mean Corpuscular Volume 82.2fL (81-100) Mean Corpuscular Hemoglobin 28.7pg (27.0-35.0) Mean Corpuscular Hemoglobin Concent 34.9% (32.0-37.0) Red Cell Distribution Width 13.6% (12.3-15.4) Platelet Count 265bil/L (150-400) Neutrophils (%) (Auto) 38.8% (40-74) Lymphocytes (%) (Auto) 46.5% (14-46) Monocytes (%) (Auto) 11.1% (4-12) Eosinophils (%) (Auto) 2.4% (0-5) Basophils (%) (Auto) 0.9% (0-3) Sodium Level 140mEq/L (134-144) Potassium Level 4.5mEq/L (3.5-5.2) Chloride Level 105mEq/L (97-108) Carbon Dioxide Level 22mmol/L (18-29) Blood Urea Nitrogen 18mg/dL (6-20) Creatinine 1.15mg/dL (0.76-1.27) Estimat Glomerular Filtration Rate 77mL/min (>59) Glucose Level 102mg/dL (60-99) Calcium Level 9.1mg/dL (8.5-10.1) Total Bilirubin 0.3mg/dL (0.0-1.2) Aspartate Amino Transf (AST/SGOT) 23U/L (0-50) Alanine Aminotransferase (ALT/SGPT) 41U/L (0-44) Alkaline Phosphatase 54U/L (25-150) Total Protein 6.2g/dL (6.4-8.4) Albumin 3.8g/dL (3.4-5.0) Discharge Medications Discharge Medications Budesonide/Formoterol 160-4.5 mcg Inh (Symbicort 160-4.5 mcg Inh) 120 Puff Inhaler 1 PUFF INH BID (Reported) Losartan Potassium (Cozaar) 25 Mg Tablet 25 MG PO DAILY Prescribed by: VINCENT VELA DO Metoprolol Tartrate (Metoprolol Tartrate) 25 Mg Tablet 25 MG PO BID (Reported) Omeprazole (Omeprazole) 40 Mg Capsule.dr 40 MG PO DAILY (Reported) As needed Albuterol Sulfate (Ventolin HFA Inhaler) 200 Puff/18 Gm Inhaler 1-2 PUFFS INH Q4H PRN PRN For Shortness of Breath (Reported) Fluticasone Propionate (Fluticasone Propionate Nasal) 16 Gm Fre[place].susp 1 SPRAY NA DAILY PRN PRN For Congestion (Reported) Followup Plan Follow-up plan Follow-up with PCP as noted within 2 weeks for dietitian referral and for physical therapy referral with possibly cervical MRI imaging Discharge Diet: Heart Healthy, Diabetic (patient prediabetic and asked to follow closely with the diabetic diet until PCP follow-up and dietitian referral ) Patient Instructions In other document Provider: Marie Lacy Follow-up in: 2 weeks Time spent 40 minutes spent with evaluation and management including discharge, greater than 50% time spent [id number] copies to: Marie Lacy David DO Jun 10, 2016 07:27
[2016-06-10 08:41] VITALS: BP 126/88; PULSE 81; RESP 18; O2SAT 95
[2016-06-10 09:02] VITALS: PULSE 66
--- NOTE | 2016-06-10 09:59 | PCM.DIMED ---
Discharge Instructions Date of Service Jun 10, 2016 Dates of Hospitalization Jun 08, 2016 at 14:42 Discharge Diagnosis Discharge Diagnosis 1. Chest pain ruled out ACS/PE/AD - likely etiology from cervical stenosis possble radiculopathy 2. History of systolic heart failure, adequate EF on nuclear stress 3. Newly diagnosed obstructive sleep apnea 4. Morbid obesity 5. Hypertension 6. Hypercholesterolemia 7. Pre- diabetes 8. Chronic cough, possibly bradykinin - switched lisinopril to losartan Medication Instructions Switched lisinopril to losartan to see if chronic cough is improved, PCP follow- up recommended Test Results CT chest PROCEDURE: CT ANGIO CHEST PULMONARY EMBOLISM ([id number]) INDICATIONS: chest pain TECHNIQUE: After the administration of intravenous contrast, 2 mm thick sections acquired from the pulmonary apices to the posterior costophrenic angles. 3-dimensional maximum intensity projection (MIP) coronal and sagittal reformats were then acquired through the thorax. For radiation dose reduction, the following was used: automated exposure control, adjustment of mA and/or kV according to patient size. COMPARISON: [facility], CT, CHEST WITH CONTRAST, 07/28/2014, 13:15. FINDINGS: Image quality: Excellent. Pulmonary arteries: Pulmonary arteries are normal in size, and demonstrate no intraluminal filling defects to suggest central pulmonary embolism. Lungs and pleura: Mild bibasilar atelectasis versus pneumonia is present. No pleural effusions or pneumothorax. Central and peripheral airways are patent. Mediastinum: Prominent mediastinal fat. Heart size is normal, without pericardial effusion. No mediastinal or hilar adenopathy. Thoracic aorta is normal in caliber and enhancement. Esophagus is normal in caliber, without hiatal hernia. Bones and chest wall: No suspicious bony lesions. Moderate rightward curvature of the upper thoracic spine, with hemivertebrae are present, as before. Ribs and thoracic spine appear intact throughout. Thyroid gland is within normal limits. No axillary or supraclavicular adenopathy. Abdomen: Visualized upper abdominal solid organs appear normal in the early arterial phase of enhancement. IMPRESSION: 1. No acute process. No pulmonary embolus. 2. Mediastinal lipomatosis. 3. 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 Nuclear stress test IMPRESSION: 1. Normal myocardial perfusion images. 2. Normal left ventricular volume and systolic function. 3. Reduced exercise capacity. Sharp chest pain at baseline, which is unchanged cholecystitis. No diagnostic EKG changes for ischemia. Negative chest x-ray 12-lead EKG reviewed and showed no ST elevation or depression 2012 MRI cervical spine Spinal cord: Visualized spinal cord has normal size and signal. No cerebellar tonsillar herniation. No abnormal intramedullary enhancement. Paraspinous soft tissues: No paravertebral masses or suspicious enhancement. C2-3: There is coalition at this level. There is increased, moderate left and no change in mild right foraminal stenosis. No canal stenosis. C3-4: Correlation. Bilateral facet and uncovertebral hypertrophy. No change in mild left foraminal stenosis. No right foraminal stenosis. No canal stenosis. No change. C4-5: Disc desiccation and diffuse disc bulge. Moderate canal stenosis. Mild left and severe right foraminal stenosis. No change. C5-6: Coalition. Mild left and no right frontal stenosis. Mild canal stenosis. No change. C6-7: Normal appearance. C7-T1: Disc desiccation and mild diffuse disc bulge. Mild bilateral foraminal stenosis. Mild canal stenosis. No change. IMPRESSION: 1. 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 2. Multilevel canal and foraminal stenoses as described above, which have increased at C2-C3. Otherwise, no significant change. Diet Heart Healthy, Diabetic (you have prediabetes and it is important that you start following a diet that closely resembles a diabetic diet.) Call your provider Fever or Chills, Shortness of breath, Vomitting, Weakness (unilateral) Patient Instructions You have been evaluated for chest pain and we have ruled out serious causes including heart attack, issues with her aorta or any clots in her lung. We did a stress test of your heart and does not appear there is any evidence of heart blockages. Please follow up with her primary care physician to facilitate referral to physical therapy which may improve your neck arm chest pain as this may be related to your underlying cervical stenosis as demonstrated on MRI in 2013. I would recommend repeating an MRI of your neck and doing this one-year pain is better controlled, please follow up with her primary care physician within 2 weeks. I have also switched her lisinopril to losartan to see if her cough improves. Please keep a list and log of your blood pressures so he can present this to your primary care physician for titration of the medication. Follow-up plan As above Follow-up Provider: Marie Lacy PAC Follow-up with PCP in: 2 weeks Vincent Hendrickson DO Jun 10, 2016 09:59
[2016-06-10] MEDS ORDERED: LOSA25TA2 PO (10:01)
--- NOTE | 2016-06-10 12:30 | NUR ---
Discharge Orders for discharge were received. The patient was made aware of the plan to discharge and was agreeable to go. The patient was given information regarding his diagnosis and treatment, signs and symptoms to be aware of, follow up instructions regarding imaging and meeting with his primary care provider, medication information as well as a script and information on his new medication. The patient signified understanding of this information and his asymptomatic IV was removed intact. The patient was then dressed in his own clothing and his belongings were gathered. Prior to discharge the patient had been complaining of some chest discomfort. Hospitalist aware, no new orders received. Patient has received extensive cardiac workup. At time of discharge patient alert and oriented, denying nausea and with pain in a tolerable level.
--- NOTE | 2016-06-10 18:34 | DRSVH ---
[facility] [address] [place] [address] Echocardiogram Report Name: KRISTIN DON JStudy Date: Height: 66 in Hospital Exam Location: [facility] Weight: 269 lb Gender: Male BSA: 2.3 m2 : 1980 Age: 36 yrs BP: 126/88 mm Hg Reason For Study: CHEST PAIN Ordering Physician: HOSPITALIST [facility] Performed By: Taylor Sloan Referring Physician: Dr. Marie Lacy Interpretation Summary Normal sinus rhythm. Normal LV size, wall thickness, wall motion and LV systolic function. EF is 60-65%. Stage II diastolic dysfunction. Normal chamber sizes. No significant valvular abnormalities based on available images. Compared to prior study performed 10/05/2015 stage II disatolic dysfunction is new. Procedure: A two-dimensional transthoracic echocardiogram with color flow and Doppler was performed. Image quality is poor. A contrast injection of Definity was performed to improve assessment of LV function. Contrast was injected into an intravenous site in the left arm. A total of 5 cc of contrast was given. Comparison is made with the echocardiogram of 10-05-2015. The subcostal views were not obtained due to no visualization. The patient was in normal sinus rhythm during the exam. The patient did well with the Definity Contrast. Left Ventricle: The left ventricle is normal in size. There is normal left ventricular wall thickness. The left ventricular ejection fraction is grossly normal. The E/A wave ratio > 2.0 could be indicative of increased preload or reduced atrial contractility. Clinical correlation is necessary. The E/E' ratio is severely increased, suggesting possible increased filling pressures. The pulmonary vein wave profile is abnormal with PVs/PVd wave reversal and PVa wave accentuation. Right Ventricle: The right ventricle grossly appears normal in size with probable normal systolic function. Atria: Both atria are normal in size. There is no Doppler evidence for an atrial septal defect. Mitral Valve: The mitral valve leaflets appear normal. There is no evidence of stenosis, fluttering, or prolapse. There is no mitral regurgitation noted. Aortic Valve: The aortic valve is not well visualized. The aortic valve opens well. There is no aortic valve stenosis. No aortic regurgitation is present. Tricuspid Valve: The tricuspid valve is not well visualized, but is grossly normal. No tricuspid regurgitation. Pulmonic Valve: The pulmonic valve is not well visualized. There is a trace or physiologic amount of pulmonic regurgitation. Great Vessels: The aortic root is normal size. The ascending aorta could not be visualized. The pulmonary is not well visualized. The IVC was not well visualized secondary to technical limitations making central venous pressures difficult to estimate. Pericardium/ Pleura There is no pericardial effusion. There is no pleural effusion. MMode/2D Measurements & Calculations LVIDd: 4.8 cm LA dimension: 4.7 cm RA long axis LVOT diam LVIDs: 3.0 cm FS: 38.2 % LA A2 area: 17.3 cm RA area AoV Opening EPSS: 0.59 cm LA A4 area: 16.2 cm IVSd: 0.88 cm LA length (vol): 4.7 cm : 12.9 cm Ao root diam LVPWd: 0.97 cm LA vol: 51.4 ml RA vol: 33.2 ml: 3.4 cm LA vol index RA : 14.6 mm2 : 22.7 ml/m2 LV mcgregor. diameter/BSA LV sys. diameter/BSA (cm/m^2): 2.1 (cm/m^2): 1.3 Doppler Measurements & Calculations Ao V2 max MV E max south MV E/A: 1.9 MV dec time : 95.2 cm/sec : 90.2 cm/sec Med Peak E' South : 0.21 sec Ao max P.6 mmHg MV A max south Ao mean P.2 mmHg : 47.3 cm/sec E/E' med: 13.9 LVOT Max South MV P1/2t Lat Peak E' South : 81.2 cm/sec : 60.2 msec E/E' lat: 8.4 MELANIA(I,D): 3.4 cm E/e' average sev ratio: 0.82 Pulm A Revs Dur MV A dur : 0.12 sec MV P1/2t max south Ao V2 mean LV V1 max PG MELANIA indexed to BSA : 73.1 cm/sec (cm^2/m^2): 1.5 Ao V2 VTI LV V1 VTI MVA(P1/2t): 3.7 cm2 : 17.0 cm MELANIA(V,D) : 3.5 cm2 Pulm A Revs Dur - MV A Dur: 0.03 msec Reading Physician:06:[id number] PM
== END 2016-06-10 12:26 | disposition home or self-care (01) ==
LOC: SED 09:50 → OSC 14:42
PROVIDERS: ADMIT Internal Medicine; ATTEND Internal Medicine
DX: R07.89 Other chest pain (principal); E78.5 Hyperlipidemia, unspecified; I10 Essential (primary) hypertension; I50.22 Chronic systolic (congestive) heart failure; M48.02 Spinal stenosis, cervical region; R73.03 Prediabetes; E66.01 Morbid (severe) obesity due to excess calories; Z68.41 Body mass index [BMI] 40.0-44.9, adult; G47.33 Obstructive sleep apnea (adult) (pediatric); M41.9 Scoliosis, unspecified; E78.00 Pure hypercholesterolemia, unspecified; R05 Cough; Z82.49 Family history of ischemic heart disease and other diseases of the circulatory system
CPT/HCPCS: 36415; 71010; 71275; 78452; 80048; 80053; 80061; 82550; 82553; 82948; 83036; 83735; 84443; 84484; 85025; 85379; 93005; 93017; 96374; 99285; A9502; C8929; G0378; J1644; J2270; J7030; Q9957; Q9967